=== PATIENT | female | born 1960 | race Caucasian/White ===

== ENCOUNTER 2016-07-17 06:58 | Day surgery (SDC) | payer BC, OTHER ==
[2016-07-17] VITALS (18 sets, daily range): BP systolic 76–153; BP diastolic 41–88
[~2016-07-17] VITALS: Ht 175.3 cm; Wt 74.8 kg
[2016-07-17] MEDS ORDERED: HEParin (CATH LAB) 2,000 ML IV ONE (07:00)
[2016-07-17] MEDS ORDERED: NS IV 1000 ML 1,000 ML ONE (07:00)
[2016-07-17] MEDS ORDERED: LIDOCAINE 1% INJ 20 ML (XYLOCAINE) VIAL ONE (07:00)
[2016-07-17 07:27] LABS: MEAN PLATELET VOLUME 10.9 FL (7.4-10.4); RED BLOOD COUNT 4.43 10^6/uL (4.35-5.85); RED CELL DISTRIBUTION WIDTH 12.1 % (10.0-14.5); WHITE BLOOD COUNT 4.6 10^3/uL (4.3-11.0)
[2016-07-17] MEDS ORDERED: NS IV 1000 ML 1,000 ML IV SCH ×2 (07:30→09:07)
[2016-07-17] MEDS ORDERED: MAGN311T5 PO (07:35)
[2016-07-17] MEDS ORDERED: OMEP20CA12 PO (07:35)
[2016-07-17 07:40] LABS: PROTHROMBIN TIME PATIENT 12.5 SEC (12.2-14.7)
[2016-07-17 07:49] LABS: ALANINE AMINOTRANSFERASE 14 U/L (0-55); ALBUMIN 4.2 G/DL (3.2-4.5); ANION GAP 9 MMOL/L (5-14); ASPARTATE AMINO TRANSFERASE 20 U/L (5-34); BILIRUBIN,TOTAL 0.4 MG/DL (0.1-1.0); BLOOD UREA NITROGEN 14 MG/DL (7-18); BUN/CREATININE RATIO 18; CALCIUM 9.2 MG/DL (8.5-10.1); CARBON DIOXIDE 27 MMOL/L (21-32); CHLORIDE 107 MMOL/L (98-107); CHOLESTEROL 185 MG/DL (< 200); DIRECT LDL 105 MG/DL (1-129); GFR ESTIMATED > 60; GLUCOSE 83 MG/DL (70-105); POTASSIUM 3.7 MMOL/L (3.6-5.0); SODIUM 143 MMOL/L (135-145); TOTAL PROTEIN 7.3 G/DL (6.4-8.2); TRIGLYCERIDES 52 MG/DL (<150); VLDL CHOLESTEROL 10 MG/DL (5-40)
[2016-07-17] MEDS ORDERED: fentaNYL INJECTION 100 MCG/2 ML AMP ONE (07:56)
[2016-07-17] MEDS ORDERED: diphenhydrAMINE 50 MG/ML INJ (BENADRYL) ONE (07:56)
[2016-07-17] MEDS ORDERED: MIDAZOLAM 5 MG/5 ML (VERSED) VIAL ONE (07:56)
--- NOTE | 2016-07-17 09:07 | Cardiac Procedure Note-CS/ASA ---
Pre-Procedure Note Pre-Op Procedure Note H&P Reviewed The H&P was reviewed, patient examined and no changes noted. Date H&P Reviewed: July 17, 2016 Time H&P Reviewed: 08:40 Conscious Sedation Pre-Proced Time Reviewed: 08:40 ASA Class: 2 Airway Mallampati Classification: ([facility] appropriate class) I. II. III, IV Lungs Heart ASA score ASA 1: a normal healthy patient ASA 2: a patient with a mild systemic disease (mid diabetes, controlled hypertension, obesity ASA 3: a patient with a severe systemic disease that limits activity (angina , COPD, prior Myocardial infarction) ASA 4: a patient with an incapacitating disease that is a constant threat to life (CHF, renal failure) ASA 5: a moribund patient not expected to survive 24 hrs. (ruptured aneurysm) ASA 6: a declared brain patient whose organs are being harvested. For emergent operations, add the letter E after the classification Grade 2 Sedation Plan: Analgesia, Amnesia, Plan communicated to team members, Discussed options with patient/fam, Discussed risks with patient/fam Note The patient is an appropriate candidate to undergo the planned procedure, sedation, and anesthesia. The patient immediately re-assessed prior to indication. KIN STARKEY MD FACP FAC CCDS July 17, 2016 09:07
[2016-07-17] MEDS ORDERED: PATIENT MAY USE OWN MEDS, ALL PO SCH (09:15)
--- NOTE | 2016-07-17 09:21 | Discharge Inst-Post CATH ---
Discharge Inst-CATH Post Cardiac Cath D/C Inst Follow Up/Plan Follow up with Dr Sorto in 1-2 weeks CARDIAC CATH DISCHARGE INSTRUCTIONS *Hold Metformin for 48 hours post heart cath. ACTIVITY * Go Home directly and rest. * Limit activity of the leg (or wrist if it was used) for 7 days including aerobics, swimming, jogging, bicycling, etc. * Restrict stair-climbing for 7 days if possible, if not, climb up with your non -cath leg, then bring together on the same step. * Avoid lifting, pushing, pulling or excessive movement of the affected extremity for 7 days. * Customary sexual activity may be resumed after 2 days-use caution not to use a position that strains or causes pain to the affected extremity. * No driving for 24 hours. * NO SMOKING. * Avoid straining for bowel movements for 7 days. * Gentle walking on level ground is allowed. * Returning to work will depend on the type of procedure and the results. Your doctor will discuss this with you. CALL YOUR DOCTOR FOR ANY OF THE FOLLOWING: *If bleeding from the puncture site occurs- Apply gentle pressure to site with clean cloth and call your doctor or EMS. * If a knot or lump forms under the skin, increases in size, or causes pain. * If bruising appears to be worsening or moving further down your leg instead of disappearing. * Temperature above 101 F. CARE OF YOUR GROIN INCISION; * Bruising or purple discoloration of the skin near the puncture site is common. * You may shower only, no bathtub bathing for 5 days. Be careful to avoid slipping as your leg may feel stiff. * If a closure device was used on your femoral artery, please see the attached guide regarding care of the device and your leg. * REMOVE the dressing from your groin the next day after your procedure in the shower. CARE OF YOUR WRIST INCISION; * Bruising or purple discoloration of the skin near the puncture site is common. * You may shower. * DO NOT submerge wrist. * Remove dressing in 24 hours. KIN SORTO MD [facility] CCDS July 17, 2016 09:21
--- NOTE | 2016-07-17 09:22 | Discharge Inst-Cardiology ---
Discharge Inst-Cardiac Discharge Medications Continued Medications: Magnesium Hydroxide (James' Milk of Magnesia) 311 Mg Tab.chew 311 MG PO HS, TAB Omeprazole (Omeprazole) 20 Mg Capsule.dr 20 MG PO DAILY, CAP Patient Instructions Patient Instructions: Follow up with Dr Starkey in 1-2 weeks KIN STARKEY MD FACP FAC CCDS July 17, 2016 09:22
--- NOTE | 2016-07-17 10:11 | CARDIAC CATHETERIZATION ---
DATE OF SERVICE: 07/17/2016 CARDIAC CATHETERIZATION This patient is a 65-year-old lady who has coronary heart disease risk factors and who has been experiencing chest discomfort consistent with angina. Cardiac catheterization was carried out today after having obtained informed consent. PROCEDURE: She was brought to the cardiac catheterization laboratory in a fasting state. Right groin was prepared and draped in the usual sterile fashion with 1% lidocaine as local anesthesia. Modified Seldinger technique was used to advance a 5-Paraguayan sheath in the right femoral artery. Angiography of the right femoral artery was carried out through the sheath. A 5-Paraguayan JL4 catheter was used for left coronary angiography. A 5-[place]agu[place] JR4 catheter was used for right coronary angiography. A 5-[place]aguayan pigtail catheter was used for left heart catheterization and left ventricular angiography. Left ventricular angiography was performed under fluoroscopy and images saved. However, at the review of images, we found that the images of left ventricular angiography had not been saved. We pulled back the pigtail from the left ventricle into the aortic arch and aortic arch angiography was performed. The catheter was then removed. A Mynx was used to achieve hemostasis following sheath removal. She tolerated the procedure well. HEMODYNAMICS: Left ventricular end diastolic pressure following coronary angiography was 13 mmHg. There was no significant pressure gradient on pullback across the aortic valve. Ascending aortic pressure was 125/72 with a mean of 58 mmHg. LEFT VENTRICULAR ANGIOGRAPHY: Left ventricular angiography was carried out in the right anterior oblique projection. Global left ventricular systolic function normal. No distinct regional wall motion abnormality was seen. There did not appear to be significant mitral regurgitation. As stated above, these images could not be saved. AORTIC ARCH ANGIOGRAPHY: Aortic arch angiography did not indicate any significant thoracic aortic aneurysm or dissection. The neck arteries, to the extent seen, do not exhibit any significant disease. CORONARY ANGIOGRAPHY: Left main coronary artery, left circumflex artery, left anterior descending artery and right coronary artery are all angiographically normal. Right coronary artery is dominant. CONCLUSIONS: 1. No angiographically significant coronary artery disease. 2. Normal global systolic function with ejection fraction approximately 60%. 3. Normal left ventricular end-diastolic pressure. 4. No significant mitral regurgitation. DISCUSSION AND RECOMMENDATIONS: Based on the results of the study, chest discomfort does not appear to be of cardiac origin. Continuing risk factor modification is advised. Job ID: [id number] DocumentID: [id number] Dictated Date: 07/17/2016 09:14:23 [place] Date: 07/17/2016 10:10:21 Dictated By: KIN STARKEY MD, MA, FACP, FACC, MTDD
--- NOTE | 2016-07-17 15:52 | Progress Note-Cardiology ---
Cardiology SOAP Progress Note Subjective: Transferred to room 407 from [facility] [place]. She reports she got up to use the bathroom and had a sudden warm sensation at the site of the cardiac cath, right groin, with pain. She reports the site feels better after pressure was held. She reports "mild" tenderness at the site. No c/o leg discomfort. Objective: I&O/Vital Signs Vital Sign - Last 12Hours 07/17/16 07/17/16 07/17/16 07/17/16 07:17 09:36 10:00 10:15 Temp 97.8 96.4 97.0 97.0 Pulse 67 58 56 56 Resp 16 16 16 16 B/P (MAP) 153/84 127/80 126/88 128/82 Pulse Ox 100 96 95 95 07/17/16 07/17/16 07/17/16 07/17/16 10:45 11:45 12:06 12:09 Temp 97.0 97.0 Pulse 56 61 41 40 Resp 16 16 16 16 B/P (MAP) 128/72 112/66 81/53 76/41 Pulse Ox 95 95 94 93 07/17/16 07/17/16 07/17/16 07/17/16 12:12 12:15 12:20 12:30 Pulse 45 45 47 54 Resp 16 16 16 16 B/P (MAP) 94/59 98/65 116/69 121/75 Pulse Ox 93 93 97 99 07/17/16 07/17/16 07/17/16 13:00 13:30 14:00 Temp 97.0 Pulse 54 56 56 Resp 16 16 16 B/P (MAP) 130/80 122/80 122/76 Pulse Ox 99 99 99 Weight (Pounds): 165 Weight (Ounces): 0.0 Weight (Calculated Kilograms): 74.376800 Side: right Groin site without hematoma: Yes Condition: DP/PT pulses palpable, extremity w/d/p, other (Dressing D&I) Bruising: mild bruising Constitutional: AAO x 3 Respiratory: lungs clear to auscultation Cardiovascular: regular rate-rhythm Gastrointestional: soft Extremities: no lower extremity edema bilateral Neurologic/Psychiatric: grossly intact Results/Procedures: Labs Laboratory Tests 07/17/16 07:16: White Blood Count 4.6, Red Blood Count 4.43, Hemoglobin 13.5, Hematocrit 42, Mean Corpuscular Volume 94, Mean Corpuscular Hemoglobin 31, Mean Corpuscular Hemoglobin Concent 33, Red Cell Distribution Width 12.1, Platelet Count 225, Mean Platelet Volume 10.9H, Prothrombin Time 12.5, INR Comment 1.0, Activated Partial Thromboplast Time 26, Sodium Level 143, Potassium Level 3.7, Chloride Level 107, Carbon Dioxide Level 27, Anion Gap 9, Blood Urea Nitrogen 14, Creatinine 0.80, Estimat Glomerular Filtration Rate > 60, BUN/Creatinine Ratio 18, Glucose Level 83, Calcium Level 9.2, Total Bilirubin 0.4, Aspartate Amino Transf (AST/SGOT) 20, Alanine Aminotransferase (ALT/SGPT) 14, Alkaline Phosphatase 80, Total Protein 7.3, Albumin 4.2, Triglycerides Level 52, Cholesterol Level 185, LDL Cholesterol Direct 105, VLDL Cholesterol 10, HDL Cholesterol 60 Laboratory Tests 07/17/16 07:16 Procedures S/P cardiac cath. Please refer to Dr. Sorto's cardiac cath report of 07-17-16 for details. A/P: Assessment: Right groin hematoma post cardiac cath - resolved No angiographically significant coronary artery disease. Normal global systolic function with ejection fraction approximately 60%. Normal left ventricular end- diastolic pressure. No significant mitral regurgitation. Per cardiac cath of 07-17-16 Mild hyperlipidemia HH (Hill's IV) and GERD, based on EGD of May 2016. Started omeprazole 07/03/16 Normal carotid duplex at [place] on 09/22/15 Fam h/o early CAD (father had CABG in his 60s) Echo of 09/22/15 (Dr Matias) at [place]: LVEF 600%, mild MR, no valvular stenosis, PASP 30 mmHg, questionalble secundum ASD with [id number] shunt Plan: Hematoma post cardiac cath which has resolved Ambulate in halls today Likely discharge home tomorrow LAURA MORRIS July 17, 2016 15:52
[2016-07-18 00:59] VITALS: BP 117/64
[2016-07-18 03:46] VITALS: BP 119/66
[2016-07-18 08:00] VITALS: BP 110/60
--- NOTE | 2016-07-18 08:08 | Progress Note-Cardiology ---
Cardiology SOAP Progress Note Subjective: No new symptoms. Has chronic intermittent heartburn, especially with recumbency. Denies shortness of breath or palp or syncope or groin discomfort. Wishes to go home Objective: I&O/Vital Signs Vital Sign - Last 12Hours 07/18/16 07/18/16 07/18/16 00:59 01:30 03:46 Temp 98.6 98.4 Pulse 58 63 58 Resp 20 20 B/P (MAP) 117/64 119/66 Pulse Ox 95 95 Intake and Output 07/18/16 00:00 Intake Total 1550 ml Balance 1550 ml Weight (Pounds): 165 Weight (Ounces): 0.2 Weight (Calculated Kilograms): 74.917946 Side: right Groin site without hematoma: Yes Condition: DP/PT pulses palpable, extremity w/d/p, other (Dressing D&I) Bruising: mild bruising Constitutional: AAO x 3 Respiratory: lungs clear to auscultation Cardiovascular: regular rate-rhythm, S1 and S2 Gastrointestional: No tender, soft, No guarding, No rebound, audible bowel sounds Extremities: No clubbing, No cyanosis, no lower extremity edema bilateral Neurologic/Psychiatric: grossly intact Skin: No rash on exposed areas, No ulcerations on exposed areas A/P: Assessment: Post-cath R groin bleed - resolved Card cath of 07-17-16: No angiographically significant coronary artery disease. Normal global systolic function with ejection fraction approximately 60%. Normal left ventricular end-diastolic pressure. No significant mitral regurgitation. Mild hyperlipidemia HH (Hill's IV) and GERD, based on EGD of May 2016. Started omeprazole 07/03/16 Normal carotid duplex at [place] on 09/22/15 Fam h/o early CAD (father had CABG in his 60s) Echo of 09/22/15 (Dr Matias) at [place]: LVEF 600%, mild MR, no valvular stenosis, PASP 30 mmHg, questionalble secundum ASD with [id number] shunt Plan: * I reviewed with her in detail her cath findings * Recent echo (TTE) has not shown any significant intracard shunt, but a small shunt could not be fully excluded. We have advised consideration of YANET * Card risk for HH surg is estimated to be relatively low. It would be reasonable to proceed * We have advised outpatient card f/u KIN STARKEY MD FACP FAC CCDS July 18, 2016 08:08
== END 2016-07-18 09:30 | disposition home or self-care (01) ==
LOC: CATH 06:58 → SURG 09:23 → ENPENDDIS 12:30 → 4TH 15:30 → CATH 07-18 09:30
PROVIDERS: ATTEND Internal Medicine Cardiovascular Disease
DX: R07.89 Other chest pain (principal); K44.9 Diaphragmatic hernia without obstruction or gangrene; Z82.49 Family history of ischemic heart disease and other diseases of the circulatory system; E78.5 Hyperlipidemia, unspecified
CPT/HCPCS: 36221; 36415; 80053; 80061; 85027; 85610; 85730; 87081; 93458

== ENCOUNTER 2016-11-15 07:59 | Outpatient (RCR) | payer BC ==
[~2016-11-15 07:59] MED LIST: MAGN311T5 PO; OMEP20CA12 PO
== END 2016-11-17 | disposition home or self-care (01) ==
PROVIDERS: ATTEND Nurse Practitioner Family
DX: M26.622 Arthralgia of left temporomandibular joint (principal)

== ENCOUNTER 2016-11-29 08:00 | Outpatient (RCR) | payer BC | END 2017-02-12 15:06 | disposition home or self-care (01) | PROVIDERS: ATTEND Nurse Practitioner Family | DX: M26.622 Arthralgia of left temporomandibular joint (principal) ==

== ENCOUNTER 2021-03-27 05:52 | Outpatient (CLI) | payer BC ==
[~2021-03-27] VITALS: Ht 172.7 cm; Wt 71.8 kg
[~2021-03-27 05:52] MED LIST changes: -OMEP20CA12 PO; +OMEP20CA18 PO
[2021-03-27] MEDS ORDERED: MELA3TAB52 PO (15:12)
== END 2021-03-27 15:27 ==
LOC: PREOP 05:52
PROVIDERS: ATTEND Otolaryngology Otolaryngology/Facial Plastic Surgery
DX: Z01.818 Encounter for other preprocedural examination (principal)

== ENCOUNTER 2021-03-31 07:25 | Day surgery (SDC) | payer BC ==
[~2021-03-31] VITALS: Ht 172.7 cm; Wt 71.8 kg
[2021-03-31] VITALS (10 sets, daily range): BP systolic 107–134; BP diastolic 55–78
[~2021-03-31 07:25] MED LIST changes: +MELA3TAB52 PO
[2021-03-31] MEDS ORDERED: LIDOCAINE/EPI 1%-1:200,000 (XYLOCAINE) 30 ML VIAL ONE (08:01)
[2021-03-31] MEDS ORDERED: NEOSTIGMINE 3 MG/3 ML VIAL ONE (08:05)
[2021-03-31] MEDS ORDERED: fentaNYL INJ 100 MCG/2 ML AMP ONE (08:05)
[2021-03-31] MEDS ORDERED: ONDANSETRON 4 MG/2 ML (SDV) Z0FRAN ONE (08:05)
[2021-03-31] MEDS ORDERED: ROCURONIUM 50 MG/5 ML (ZEMURON) VIAL IV ONE (08:05)
[2021-03-31] MEDS ORDERED: GLYCOPYRROLATE 0.2 MG/ML (ROBINUL) 2 ML VIAL ONE (08:05)
[2021-03-31] MEDS ORDERED: MIDAZOLAM 2 MG/2 ML (VERSED) VIAL ONE (08:05)
[2021-03-31] MEDS ORDERED: proPOfol 200 MG/20 ML (DIPRIVAN) VIAL IV ONE (08:05)
[2021-03-31] MEDS ORDERED: LIDOCAINE PF 2% 5 ML (XYLOCAINE) VIAL ONE (08:05)
[2021-03-31] MEDS: LACTATED RINGERS 1,000 ML IV PRN ×2 (08:09→08:39)
--- NOTE | 2021-03-31 08:46 | Progress Note-Pre Operative ---
Pre-Operative Progress Note H&P Reviewed The H&P was reviewed, patient examined and no changes noted. Date Seen by Provider: Mar 31, 2021 Time Seen by Provider: 08:00 Date H&P Reviewed: Mar 31, 2021 Time H&P Reviewed: 08:00 Pre-Operative Diagnosis: Left Vallecular Mass DEBRA MUNGUIA MD Mar 31, 2021 08:46
--- NOTE | 2021-03-31 08:47 | Progress Note-Post Operative ---
Post-Operative Progess Note Surgeon (s)/Hand Salter (s) Surgeon DEBRA MUNGUIA MD Hand Salter n/a Pre-Operative Diagnosis Left Vallecular Mass Post-Operative Diagnosis same Post-Op Procedure Note Date of Procedure: Mar 31, 2021 Name of Procedure Performed: Direct Laryngosocpy with Biopsy of Left Vallecular Mass Description & Findings Description and Findings: n/a Anesthesia Type get Estimated Blood Loss minimal Packing none. Specimen(s) collected/removed left vallecular biopsies to pathology DEBRA MUNGUIA MD Mar 31, 2021 08:47
[2021-03-31] MEDS ORDERED: HYDROcodone/APAP 5 MG/325 MG (LORTAB) TAB PO PRN (09:00)
[2021-03-31] MEDS ORDERED: PROMETHAZINE INJ 25 MG/ML (PHENERGAN) AMP IV PRN (09:00)
[2021-03-31] MEDS ORDERED: SEVOFLURANE (ULTANE) 15 ML INHAL SOLN ONE (09:19)
[2021-03-31] MEDS ORDERED: ONDANSETRON 4 MG/2 ML (SDV) Z0FRAN IVP PRN (09:30)
[2021-03-31] MEDS ORDERED: morphine INJ 10 MG/ML 1ML (SYR OR VIAL) IVP ONE (09:30)
[2021-03-31] MEDS ORDERED: ACHD5005 PO ×2 (10:16→11:12)
--- NOTE | 2021-04-06 13:48 | Anesthesia-General Post-Op ---
General Patient Condition Mental Status/LOC: Same as Preop Cardiovascular: Satisfactory Nausea/Vomiting: Absent Respiratory: Satisfactory Pain: Controlled Complications: Absent Post Op Complications Complications None Follow Up Care/Instructions Patient Instructions None needed. Anesthesia/Patient Condition Patient Condition Post-op progress note: Patient was seen on 03-31-21 after the procedure at approximately 1030 and she was doing well, no complaints, stable vital signs, no apparent adverse anesthesia problems. SAM MENDIOLA DO Apr 06, 2021 13:48
== END 2021-03-31 12:00 | disposition home or self-care (01) ==
LOC: SDC 07:25
PROVIDERS: ATTEND Otolaryngology Otolaryngology/Facial Plastic Surgery
DX: J38.7 Other diseases of larynx (principal); R59.0 Localized enlarged lymph nodes
CPT/HCPCS: 87081; 88305; 88342